=== PATIENT | female | born 1955 | race Caucasian/White ===

== ENCOUNTER → 2024-08-17 | Outpatient (CLI) | payer MEDICARE, SELFPAY ==
[2024-08-17 09:43] LABS: Misc Send Out* See Sep Rpt
[2024-08-17 10:28] LABS: Basophils % (Auto) 1 % (0-2.5); Eosinophils # (Auto) 0.2 Thou/mm3 (0.0-0.5); Eosinophils % (Auto) 3 % (0-10); Hematocrit 37.9 % (36.0-46.0); Hemoglobin 12.8 g/dL (12.0-16.0); Immature Granulocytes % (Auto) 0 % (0-0); Immature Granulocytes Auto 0.01 Thou/mm3 (0.00-0.00); Lymphocytes # (Auto) 1.4 Thou/mm3 (1.0-4.8); Lymphocytes % (Auto) 26 % (10-50); Mean Corpuscular HGB Conc 33.8 g/dl (31.0-37.0); Mean Corpuscular Hemoglobin 28.7 pg (25.0-35.0); Mean Corpuscular Volume 85 fL (80-100); Monocytes # (Auto) 0.5 Thou/mm3 (0.0-0.8); Monocytes % (Auto) 10 % (0-12); Neutrophils # (Auto) 3.2 Thou/mm3 (1.8-7.7); Neutrophils % (Auto) 60 % (37-80); Nucleated Red Blood Cell % 0 /100 WBC (0); Platelet Count 313 Thou/mm3 (140-440); RDW Standard Deviation 41.6 fL (36.4-46.3); Red Blood Count 4.46 Miln/mm3 (4.00-5.20); White Blood Count 5.3 Thou/mm3 (3.6-11.0)
[2024-08-17 10:43] LABS: Sed Rate (ESR) 4 mm/hr (0-30)
[2024-08-17 10:46] LABS: Glucose Estimated Average 108 mg/dL (80-131); Hemoglobin A1C 5.4 % Hgb (4.8-6.0)
[2024-08-17 11:00] LABS: Amphetamine/Methamp Scrn,U Negative (Negative); Barbiturate Screen,Urine Negative (Negative); Benzodiazepines Screen,Urine Positive (Negative); Benzoylecgonine Screen, Ur Negative (Negative); Fentanyl Screen,Urine Negative (Negative); Opiate Screen,Urine Negative (Negative); THC Screen,Urine Negative (Negative)
[2024-08-17 11:10] LABS: Alanine Aminotransferase 27 U/L (10-49); Albumin, Serum 4.6 gm/dL (3.4-4.8); Alkaline Phosphatase 64 U/L (46-116); Anion Gap 9 (7-16); Aspartate Amino Transferase 24 U/L (0-34); BUN/Creatinine Ratio 26 Ratio (12-20); Bilirubin,Total 0.3 mg/dL (0.3-1.2); Blood Urea Nitrogen 18 mg/dL (9-23); C-Reactive Protein < 0.4 mg/dL (0.0-0.9); Calcium 9.3 mg/dL (8.3-10.6); Calcium (Corrected) 9.3 mg/dL (8.5-10.1); Carbon Dioxide 26.4 mMol/L (20.0-31.0); Chloride 103 mMol/L (98-107); Creatinine (Component) 0.7 mg/dL (0.6-1.3); Globulin 2.3 gm/dL (2.3-3.5); Glucose 94 mg/dL (74-106); Osmolality,Calculated 277 (275-295); Sodium 138 mMol/L (136-145); Thyroid Stimulating Hormone 2.54 uIU/mL (0.55-4.78); Total Protein 6.9 gm/dL (5.7-8.2); eGFR > 60 See Note
[2024-08-17 11:22] LABS: Iron 76 mcg/dL (50-170); Percent Iron Saturation 20 % (20-55); T4 (Thyroxine) 8.3 mcg/dL (4.5-10.9); Total Iron Binding Capacity 367 mcg/dL (250-425); Unsaturated Iron Binding 291 (225-295)
[2024-08-17 12:32] LABS: Vitamin B12 737 pg/mL (211-911); Vitamin D 25 Hydroxy Total 35.2 ng/mL (7.3-40.2)
[2024-08-24 06:54] LABS: ANA Pattern NUCLEAR, NUCLEOLAR; ANA Screen, IFA POSITIVE (NEGATIVE); ANA Titer 1:40 titer; Homocysteine* 10.2 umol/L (<10.4); Methylmalonic Acid, GC/MS/MS* 259 nmol/L (69-390); Thyroid Peroxidase Antibodies* 1 IU/mL (<9)
== END | disposition home or self-care (01) ==
LOC: COPL 09:14
PROVIDERS: PCP Family Medicine; Referring Provider Nurse Practitioner Family; Visit Provider Nurse Practitioner Family
DX: M54.2 Cervicalgia (principal); Z71.51 Drug abuse counseling and surveillance of drug abuser; R53.83 Other fatigue; D89.9 Disorder involving the immune mechanism, unspecified; D64.9 Anemia, unspecified
CPT/HCPCS: 36415; 80053; 80307; 82306; 82607; 82746; 83036; 83090; 83540; 83550; 83789; 83921; 84436; 84443; 84466; 84481; 85025; 85652; 86038; 86140; 86376